=== PATIENT | female | born 1980 | race Caucasian/White ===

== ENCOUNTER 2022-09-01 09:08 | Emergency (ER) | payer OTHER ==
[~2022-09-01] VITALS: Ht 144.8 cm; Wt 59.1 kg
[2022-09-01 09:30] VITALS: BP 135/71
[2022-09-01] MEDS ORDERED: ACETAMINOPHEN 500 MG TABLET PO ONE (09:45)
== END 2022-09-01 10:45 | disposition home or self-care (01) ==
LOC: EMS 09:18
DX: S29.012A Strain of muscle and tendon of back wall of thorax, initial encounter (principal); S39.012A Strain of muscle, fascia and tendon of lower back, initial encounter; Z98.890 Other specified postprocedural states; V98.8XXA Other specified transport accidents, initial encounter; Y93.89 Activity, other specified; Y92.89 Other specified places as the place of occurrence of the external cause; Y99.8 Other external cause status
CPT/HCPCS: 72070; 72100; 99283